=== PATIENT | female | born 1970 | race African-American/Black ===

== ENCOUNTER 2022-02-02 10:19 | Outpatient (CLI) | payer OTHER, MEDICARE, MEDICAID, SELFPAY | END 2022-02-02 10:20 | disposition home or self-care (01) | PROVIDERS: PCP Family Medicine; Visit Provider Family Medicine | DX: M47.816 Spondylosis without myelopathy or radiculopathy, lumbar region (principal) | CPT/HCPCS: 64493; J0702; Q9966 ==

== ENCOUNTER 2024-06-05 13:06 | Emergency (ER) | payer MEDICARE, SELFPAY ==
[2024-06-05] VITALS (18 sets, daily range): BP systolic 169–188; BP diastolic 100–116; PULSE 86–99; RESP 18; TEMP 36.8; O2SAT 94–99; BMI 38.9
--- NOTE | 2024-06-05 13:31 | ED.GENADULT ---
HPI - General Adult General Chief complaint: Chest Pain Stated complaint: Chest Pressure Time Seen by Provider: 06/05/24 13:07 History of Present Illness HPI narrative: comes to ed with concerns of having chest pain. this started on when she was walking at [facility]. this hasn't gone away and is worsening. pain worsens with activity. does feel sob after she stops. is sleeping poorly , tosses and turns. has some tingling in right hand, this occurs with chest discomfort. sister has hx of cad. is here with her room mate. 53-year-old woman presenting to the emergency department with concern of chest pain. She describes a persistent but intermittent and worsening pressure. She describes shortness of breath on exertion and then also with exertion a tingling that evolves in her right hand. She does not describe palpitations or tachycardia. Noted on exam that seems to be more prominent when leans forward and improves when lying back. Some cough maybe a couple of weeks ago but otherwise has been generally well. Reports a history of aortic dilatation of some sort. Does not use the word aneurysm. History of lumbar back pain with spondylosis Related Data Previous Rx's ?Medication ?Instructions ?Recorded indomethacin 50 mg capsule 50 mg PO TID #15 caps 06/05/24 Allergies Allergy/AdvReac Type Severity Reaction Status Date / Time acetaminophen Allergy Verified 06/05/24 16:30 aspirin Allergy Verified 06/05/24 16:30 lisinopril Allergy Verified 06/05/24 16:30 flu shot Allergy Uncoded 06/05/24 16:30 Review of Systems Status of ROS: Reports: 6 or more systems reviewed and unremarkable except as noted in History and below [facility] Social History Smoking Status: Never smoker How often do you have a drink containing alcohol: never How often do you have six or more drinks on one occasion: Never AUDIT-C Alcohol total score: 0 Non-prescribed substance use: denies use service: No Exam Narrative: Exam Narrative: Very pleasant. NAD. Skin is warm and dry. She is well-perfused peripherally. No notable edema. Lungs are clear. Heart in elevated rate but regular rhythm. I am not able to clearly reproduce discomfort to palpation of chest or back. Abdomen is soft and nontender. Const: Vital Signs, click to edit/add: Vital Signs - 24 hr 06/05/24 13:16 06/05/24 13:31 06/05/24 13:45 Temperature 98.3 F Pulse Rate 87 87 Pulse Rate [Pulse Oximeter] 93 Respiratory Rate 18 Blood Pressure Blood Pressure [Le ft Forearm] 188/116 H Pulse Oximetry 98 99 98 Oxygen Delivery Me thod Room Air 06/05/24 14:00 06/05/24 14:15 06/05/24 14:30 Temperature Pulse Rate 99 89 92 Pulse Rate [Pulse Oximeter] Respiratory Rate Blood Pressure Blood Pressure [Le ft Forearm] Pulse Oximetry 98 96 98 Oxygen Delivery Me thod 06/05/24 14:45 06/05/24 15:00 06/05/24 15:15 Temperature Pulse Rate 93 89 87 Pulse Rate [Pulse Oximeter] Respiratory Rate Blood Pressure Blood Pressure [Le ft Forearm] Pulse Oximetry 96 99 95 Oxygen Delivery Me thod 06/05/24 15:30 06/05/24 15:45 06/05/24 16:00 Temperature Pulse Rate 96 88 87 Pulse Rate [Pulse Oximeter] Respiratory Rate Blood Pressure Blood Pressure [Le ft Forearm] Pulse Oximetry 95 94 98 Oxygen Delivery Me thod 06/05/24 16:15 06/05/24 16:18 Temperature Pulse Rate 87 86 Pulse Rate [Pulse Oximeter] Respiratory Rate Blood Pressure 169/100 H Blood Pressure [Le ft Forearm] Pulse Oximetry 98 98 Oxygen Delivery Me thod Documenting provider has reviewed patient's vital signs: yes Course Vital Signs Vital signs: Initial Vital Signs Respiratory Effort Normal 06/05/24 13:13 Respiratory Depth Normal 06/05/24 13:13 Respiratory Pattern Normal 06/05/24 13:13 Vital Signs Temperature 98.3 F 06/05/24 13:16 Pulse Rate 93 06/05/24 13:16 Respiratory Rate 18 06/05/24 13:16 Blood Pressure 188/116 H 06/05/24 13:16 Pulse Oximetry 98 06/05/24 13:16 Oxygen Delivery Method Room Air 06/05/24 13:16 Temperature 98.3 F 06/05/24 13:16 Pulse Rate 89 06/05/24 17:00 Respiratory Rate 18 06/05/24 13:16 Blood Pressure 169/109 H 06/05/24 16:22 Pulse Oximetry 96 06/05/24 17:00 Oxygen Delivery Method Room Air 06/05/24 13:16 Medications Administered Medications: Discontinued Medications Generic Name Dose Route Start Last Admin Trade Name Sidra PRN Reason Stop Dose Admin Sodium Chloride 500 mls @ 1,000 mls/hr 06/05/24 16:02 06/05/24 16:47 0.9 % Sodium Chloride 500 Ml IV 06/05/24 16:31 1,000 mls/hr .Q30M ONE Administration Ketorolac Tromethamine 30 mg 06/05/24 16:03 06/05/24 16:14 Ketorolac 30 Mg/Ml Inj IVP 06/05/24 16:04 30 mg ONCE ONE Administration Medical Decision Making MDM Narrative Medical decision making narrative: Unclear etiology to this. I suppose this could represent pneumonia, pneumomediastinum, esophageal irritation and tension, GERD, dissection, pulmonary embolus, chest wall pain or tension, pericarditis. She does not actually have a pleuritic component to this discomfort. Would note that seems to be worse when she leans forward and improves when lying back; would seem inconsistent with pericarditis. Would also seem inconsistent with ischemic cardiovascular disease given duration of persistent symptoms although I suppose could represent some angina at least related to exertion. EKG without findings of pericarditis and without ischemic changes. See below. Chest x-ray independently reviewed by me appears to be with normal cardiac silhouette and without infiltrate or pneumothorax or pneumomediastinum. Radiology over-read below INDICATION: Chest pain. TECHNIQUE: Chest 1 views. COMPARISON: None. FINDINGS: Cardiovasculature and mediastinum: Heart size is normal. Atherosclerosis of the aortic arch. Lungs and pleural spaces: Lungs are clear. No sign of infiltrate or mass. No sign of pleural effusion. No pneumothorax. Bones and soft tissues: No significant findings. IMPRESSION: No acute or significant findings. I did return for bedside point of care ultrasound. Performed by me to assess cardiac activity and if there is any significant cardiac effusion. This seemed to show good, appropriately dynamic cardiac activity without evidence of pericardial effusion. Labs are reassuring including normal D-dimer. Received normal saline and ketorolac and overall is improved though when I am talking with Orly, she continues to speak or breathe is if she is in a great deal of discomfort. I do not know what this represents. Would still suspect some inflammation or physical pressure somewhere. Will proceed with IV contrasted CT scan of chest looking for pulmonary embolus or vascular disruption that might explain her peripheral symptoms. These may simply be radiating from muscular tension in the back that I cannot reproduce here today. This might also identify some sort of vascular restriction that could be contributing. I did review CT imaging of chest independently. No gross abnormality appreciated by me. Indication: Recurrent intensifying chest pain, shortness of breath, right hand tingling Technique: CTA of the chest following 95 mL Isovue 370 IV contrast. Comparison: None Findings: Pulmonary arteries: Borderline diagnostic contrast opacification of the pulmonary arteries. No large central embolism appreciated. Lungs: No consolidation. No effusion. No pneumothorax. Scattered pulmonary nodules measure up to 4 millimeters. Atelectasis and/or scarring noted. Mediastinum: No acute abnormality appreciated. Calcified coronary arterial and aortic atherosclerosis. Lymph nodes: No gross lymphadenopathy. Upper abdomen: No acute abnormality appreciated. Soft tissues: No acute abnormality appreciated. Bones: No acute abnormality appreciated. Impression: 1. Borderline diagnostic contrast opacification of the pulmonary artery. No large central embolism or other acute abnormality appreciated. 2. Pulmonary nodules measure up to [address]imeters. Follow-up CT in 12 months recommended. 3. Calcified coronary arterial and aortic atherosclerosis. Discussed all findings with Orly. With smoking history would recommend close follow-up regarding these pulmonary nodules. At this point would treat for chest wall pain with NSAID. See patient discharge plan for further discussion I think there is some inflammation in your chest causing discomfort. So anti-inflammatories like you received here today can be helpful. I would like you to take indomethacin, an anti-inflammatory we use to treat gout, regularly maybe with a little bit of food, over the next 4-5 days. Follow-up in a week if not improved. Be seen sooner for worsening shortness of breath, clearly increasing chest pain, associated fever. Again, blood pressures generally were high here; you did have 1 that was pretty good. Goal I am assuming for you is 130/70 or 130/80. Amlodipine might be an option if needed. Of course stopping vaping and smoking would be better and might lower your blood pressure. Would also follow up within a year to repeat CT imaging because of these pulmonary nodules. There may be some prior imaging out there however that would show that these nodules have been stable for some time. Perhaps your primary can help you find this if that exists. Medical Records Medical records reviewed: Yes I reviewed the patient's medical records Lab Data Lab results reviewed: Yes I reviewed the patient's lab results Labs: Lab Results 06/05/24 06/05/24 06/05/24 Range/Units 13:53 14:33 16:40 WBC 7.05 (4.50-11.00) K/uL RBC 4.47 (4.00-5.20) m/uL Hgb 12.6 (12.0-16.0) gm/dL Hct 39.6 (33.0-51.0) % MCV 89 (80-100) fL MCH 28 (26-34) pg MCHC 32 (32-36) gm/dL RDW Coeff of Елена 13.6 (11.5-15.5) % Plt Count 300 (140-440) K/uL Neut % (Auto) 42.4 (42.0-72.0) % Lymph % (Auto) 46.7 H (20-44) % [place] % (Auto) 8.4 (0.0-11.0) % Eos % (Auto) 2.1 (0.0-7.0) % Baso % (Auto) 0.3 (0.0-3.0) % Neut # (Auto) 2.99 (1.7-7.0) K/uL Lymph # (Auto) 3.30 H (0.90-2.90) K/uL [place] # (Auto) 0.60 (0.00-0.90) K/UL Eos # (Auto) 0.15 (0.00-0.50) K/uL Baso # (Auto) 0.02 (0.00-0.30) K/uL Abs Immat Gran (auto) 0.01 (0.00-0.30) K/uL Imm/Tot Granulo (auto) 0.1 % D-Dimer Quant (PE/DVT) 0.43 (0.00-0.50) ug/ml Sodium 139 (135-149) mmol/L Potassium 3.9 (3.6-5.1) mmol/L Chloride 105 (96-114) mmol/L Carbon Dioxide 28 (20-32) mmol/L Anion Gap 6 L (7-15) mEq/L BUN 16 (7-30) mg/dL Creatinine 0.9 (0.5-1.5) mg/dL Estimated Creat Clear 53.92 Estimated GFR 76 ml/min Glucose 95 (60-115) mg/dL Calcium 9.2 (8.4-10.6) mg/dL Troponin I < 0.01 L (0.01-0.04) ng/mL C-Reactive Protein < 0.5 L (0.5-1.0) mg/dL NT-Pro-B Natriuret Pep < 20 pg/mL Lab Acknowledgement Test Added Test Added ECG Data Attestation: I personally reviewed and interpreted this ECG as follows: (With normal sinus rhythm. No ischemic changes appreciated. Rate of 86) Discharge Plan Discharge Clinical Impression: Atypical chest pain, Hypertension, Pulmonary nodules Patient Disposition: Home w/ Parent or Adult Condition: Improved Additional Instructions: I think there is some inflammation in your chest causing discomfort. So anti-inflammatories like you received here today can be helpful. I would like you to take indomethacin, an anti-inflammatory we use to treat gout, regularly maybe with a little bit of food, over the next 4-5 days. Follow-up in a week if not improved. Be seen sooner for worsening shortness of breath, clearly increasing chest pain, associated fever. Again, blood pressures generally were high here; you did have 1 that was pretty good. Goal I am assuming for you is 130/70 or 130/80. Amlodipine might be an option if needed. Of course stopping vaping and smoking would be better and might lower your blood pressure. Would also follow up within a year to repeat CT imaging because of these pulmonary nodules. There may be some prior imaging out there however that would show that these nodules have been stable for some time. Perhaps your primary can help you find this if that exists. Prescriptions: New indomethacin 50 mg capsule 50 mg PO TID Qty: 15 0RF Rx Instructions: administer with food or milk Follow Up/Referrals: Ivette Yarbrough [employer] [Primary Care Provider] - Stand Alone Forms: My[facility] Info Instructions
--- NOTE | 2024-06-05 13:42 | CRLHL7_ITS ---
For Patients: As a result of the Century Cures Act, medical imaging exams and procedure reports are released immediately into your electronic medical record. You may view this report before your referring provider. If you have questions, please contact your health care provider. INDICATION: Chest pain. TECHNIQUE: Chest 1 views. COMPARISON: None. FINDINGS: Cardiovasculature and mediastinum: Heart size is normal. Atherosclerosis of the aortic arch. Lungs and pleural spaces: Lungs are clear. No sign of infiltrate or mass. No sign of pleural effusion. No pneumothorax. Bones and soft tissues: No significant findings. IMPRESSION: No acute or significant findings. Dictated by Sonail King MD @ 06/05/2024 2:14:19 PM (Electronically Signed)
[2024-06-05 14:04] LABS: Basophils Absolute Auto 0.02 K/uL (0.00-0.30); Basophils Percent Auto 0.3 % (0.0-3.0); Eosinophils Absolute Auto 0.15 K/uL (0.00-0.50); Eosinophils Percent Auto 2.1 % (0.0-7.0); Hematocrit 39.6 % (33.0-51.0); Hemoglobin* 12.6 gm/dL (12.0-16.0); Immature Granulocytes Abs Auto 0.01 K/uL (0.00-0.30); Immature Granulocytes Pct Auto 0.1 %; Lymphocytes Percent Auto 46.7 % (20-44); Mean Corpuscular HGB Conc 32 gm/dL (32-36); Mean Corpuscular Hemoglobin 28 pg (26-34); Mean Corpuscular Volume 89 fL (80-100); Monocytes Percent Auto 8.4 % (0.0-11.0); Neutrophils Absolute Auto 2.99 K/uL (1.7-7.0); Neutrophils Percent Auto 42.4 % (42.0-72.0); Platelet Count* 300 K/uL (140-440); RDW Coefficient of Variation % 13.6 % (11.5-15.5); Red Blood Count 4.47 m/uL (4.00-5.20); White Blood Count* 7.05 K/uL (4.50-11.00)
[2024-06-05 14:05] LABS: Slide Review Reflex No
[2024-06-05 14:15] LABS: Chloride* 105 mmol/L (96-114); Sodium* 139 mmol/L (135-149)
[2024-06-05 14:16] LABS: Potassium* 3.9 mmol/L (3.6-5.1)
[2024-06-05 14:18] LABS: Creatinine* 0.9 mg/dL (0.5-1.5); Est. Creatinine Clearance* 53.92; Estimated Glomerular Filt Rate 76 ml/min
[2024-06-05 14:19] LABS: Anion Gap 6 mEq/L (7-15); Blood Urea Nitrogen* 16 mg/dL (7-30); Calcium* 9.2 mg/dL (8.4-10.6); Carbon Dioxide* 28 mmol/L (20-32); Glucose* 95 mg/dL (60-115)
[2024-06-05 14:26] LABS: C Reactive Protein* < 0.5 mg/dL (0.5-1.0)
[2024-06-05 14:34] LABS: Troponin I* < 0.01 ng/mL (0.01-0.04)
[2024-06-05 15:42] LABS: D Dimer Quantitative* 0.43 ug/ml (0.00-0.50)
--- NOTE | 2024-06-05 16:03 | CRLHL7_ITS ---
For Patients: As a result of the Century Cures Act, medical imaging exams and procedure reports are released immediately into your electronic medical record. You may view this report before your referring provider. If you have questions, please contact your health care provider. Indication: Recurrent intensifying chest pain, shortness of breath, right hand tingling Technique: CTA of the chest following 95 mL Isovue 370 IV contrast. Comparison: None Findings: Pulmonary arteries: Borderline diagnostic contrast opacification of the pulmonary arteries. No large central embolism appreciated. Lungs: No consolidation. No effusion. No pneumothorax. Scattered pulmonary nodules measure up to 4 millimeters. Atelectasis and/or scarring noted. Mediastinum: No acute abnormality appreciated. Calcified coronary arterial and aortic atherosclerosis. Lymph nodes: No gross lymphadenopathy. Upper abdomen: No acute abnormality appreciated. Soft tissues: No acute abnormality appreciated. Bones: No acute abnormality appreciated. Impression: 1. Borderline diagnostic contrast opacification of the pulmonary artery. No large central embolism or other acute abnormality appreciated. 2. Pulmonary nodules measure up to 4 millimeters. Follow-up CT in 12 months recommended. 3. Calcified coronary arterial and aortic atherosclerosis. Please note that all CT scans at this facility use dose modulation, iterative reconstruction, and/or weight-based dosing when appropriate to reduce radiation dose to as low as reasonably achievable. Dictated by Sunil Suarez MD @ 06/05/2024 5:14:40 PM (Electronically Signed)
[2024-06-05] MEDS: KETOROLAC 30 MG/ML inj IVP (16:14)
[2024-06-05] MEDS: 0.9 % SODIUM CHLORIDE 500 ML 500 ML 1000 ML IV (16:47)
[2024-06-05 17:03] LABS: NT Pro B Type NatriureticPept* < 20 pg/mL
== END 2024-06-05 18:05 | disposition home or self-care (01) ==
PROVIDERS: Emergency Provider Family Medicine; PCP Family Medicine
DX: R07.89 Other chest pain (principal); I10 Essential (primary) hypertension; R91.1 Solitary pulmonary nodule
CPT/HCPCS: 36415; 71045; 71275; 80048; 83880; 84484; 85025; 85379; 86140; 96374; 99284; 99285; J1885; J7030; Q9967